=== PATIENT | male | born 1955 | race Caucasian/White ===

== ENCOUNTER 2023-08-20 07:30 | Outpatient (CLI) | payer MEDICARE, BC ==
[2023-08-20 07:52] LABS: TOTAL HEMOGLOBIN 16.2 G/dl (14.0-17.9)
== END 2023-08-20 23:59 | disposition home or self-care (01) ==
LOC: RT 07:30
PROVIDERS: ATTEND Internal Medicine
DX: R94.2 Abnormal results of pulmonary function studies (principal); R06.02 Shortness of breath
CPT/HCPCS: 85018; 94010; 94727; 94729; J7030; A4615